=== PATIENT | female | born 1985 | race Caucasian/White ===

== ENCOUNTER → 2020-11-27 | Outpatient (CLI) | payer OTHER, BC ==
[2020-11-27 23:01] LABS: Basophils # (A) 0.03 X 10*3/uL (0.00-0.10); Basophils % (A) 0.5 %; Eosinophils # (A) 0.08 X 10*3/uL (0.04-0.35); Eosinophils % (A) 1.3 %; HCT 35.9 % (37.2-46.3); HGB 11.3 g/dL (12.0-15.0); Lymphocytes % (A) 43.8 %; MCH 30.2 pg (27.0-32.0); MCHC 31.5 g/dL (32.0-37.0); Mean Platelet Volume 10.9 fL (9.5-12.2); Monocytes # (A) 0.29 X 10*3/uL (0.20-1.00); Monocytes % (A) 4.9 %; Neutrophils # (A) 2.93 X 10*3/uL (1.80-7.70); Neutrophils % (A) 49.5 %; Platelet Count 250 X 10*3/uL (140-440); RBC 3.74 X 10*6/uL (4.10-5.20); RDW 12.9 % (11.5-14.5); WBC 5.93 X 10*3/uL (4.50-10.00)
[2020-11-28 06:42] LABS: African American GFR (CKD) 96.7 (60.0-200.0); Anion Gap 12.3 mmol/L (4.00-12.00); BUN/Creat Ratio 11.11 Ratio (12.00-20.00); Calcium 9.8 mg/dL (8.7-10.3); Carbon Dioxide 24.7 mmol/L (21.6-31.8); Non-African American GFR(CKD) 83.4 (60.0-200.0); Potassium 4.1 mmol/L (3.5-5.5)
== END | disposition home or self-care (01) ==
LOC: LABWHC1 14:03
PROVIDERS: ATTEND Obstetrics & Gynecology
DX: Z01.812 Encounter for preprocedural laboratory examination (principal)
CPT/HCPCS: 36415; 80048; 85025

== ENCOUNTER 2020-12-05 05:48 | Day surgery (SDC) | payer OTHER, BC ==
[2020-12-02 08:47] VITALS: BMI 31.6
--- NOTE | 2020-12-04 10:32 | P.HPOB ---
History of Present Illness H&P Date: 12/04/20 Chief Complaint: Family history of ovarian cancer Chary is a 34-year-old female who has a strong family history of ovarian cancer and is at increased risk. She is [place] seen oncology who is recommending this procedure. She is scheduled for a robotic-assisted laparoscopic hysterectomy with bilateral salpingo-oophorectomy possible MIRIAM and possible BSO. She has completed her family planning and is therefore moving forward with this procedure. Risks/benefits/alternatives were reviewed with patient in detail and did include but were not limited to bleeding and infection, damage to bladder or bowel, vascular injuries, nerve injuries, ureteral injuries possible need for other surgery. Past Medical History Past Medical History: Eye Disorder, Hyperlipidemia Additional Past Medical History / Comment(s): lattice degeneration of retina-sarbjit History of Any Multi-Drug Resistant Organisms: None Reported Additional Past Surgical History / Comment(s): oral procedures Past Anesthesia/Blood Transfusion Reactions: No Reported Reaction Smoking Status: Never smoker - Past Family History Mother Family Medical History: Cancer Additional Family Medical History / Comment(s): ovarian Medications and Allergies Home Medications Medication Instructions Recorded Confirmed Type Rosuvastatin Calcium [Crestor] 10 mg PO HS 12/02/20 12/02/20 History Allergies Allergy/AdvReac Type Severity Reaction Status Date / Time Penicillins Allergy Unknown Verified 12/02/20 08:39 Childhood Exam Osteopathic Statement: *. No significant issues noted on an osteopathic structural exam other than those noted in the History and Physical/Consult. - OBG Physical Exam Breast: both: normal (no masses) Abdomen: bowel sounds normal, no diffuse tenderness, no bruit present, no guarding noted, no hepatomegaly, no splenomegaly, no mass Vulva: both: normal Vagina: normal moisture, no discharge Cervix: no lesion, no discharge Uterus: normal size, normal contour Adnexa: both: normal Anus/Rectum: normal perianal skin, no rectal mass, no hemorrhoids, heme negative
[~2020-12-05 05:48] MED LIST: DEXAMETHASONE SOD PHOSPHATE 4 MG/ML 1 ML VIAL IV ONE; HYDROmorphone 0.5 MG/0.5 ML SYRINGE IVP PRN; LACTATED RINGERS 1,000 ML IV SCH; LIDOCAINE 1% (10MG/ML) FOR IV START INTRADERMA PRN; MIDAZOLAM 2 MG/2 ML VIAL IV PRN; ONDANSETRON 4 MG/2 ML VIAL IVP ONE
[2020-12-05] MEDS ORDERED: fentaNYL (PF) 50 MCG/ML 2 ML AMP ONE (07:24)
[2020-12-05] MEDS ORDERED: HYDROmorphone (PF) 1 MG/ML ONE (07:24)
[2020-12-05] MEDS ORDERED: SUCCINYLCHOLINE CHLORIDE 100 MG/5 ML SYR IV ONE (07:24)
[2020-12-05] MEDS ORDERED: ROCURONIUM 10 MG/ML (5 ML VIAL) IV ONE (07:24)
[2020-12-05] MEDS ORDERED: KETOROLAC 15 MG/ML 1 ML VIAL ONE (07:24)
[2020-12-05] MEDS ORDERED: NEOSTIGMINE 1 MG/ML 10 ML VIAL ONE (07:24)
[2020-12-05] MEDS ORDERED: GLYCOPYRROLATE 0.2 MG/ML 2 ML VIAL ONE (07:24)
[2020-12-05] MEDS ORDERED: MIDAZOLAM 2 MG/2 ML VIAL ONE (07:24)
[2020-12-05] MEDS ORDERED: LIDOCAINE 1% INJ 10MG/ML (20 ML MDV) ONE (07:24)
[2020-12-05] MEDS ORDERED: PROPOFOL 10 MG/ML 20 ML VIAL IV ONE (07:24)
[2020-12-05] MEDS ORDERED: BUPIVACAINE (PF) 0.25% 30 ML VIAL SQ ONE ×2 (08:14)
[2020-12-05] MEDS ORDERED: LACTATED RINGERS 1,000 ML IV ONE (08:25)
[2020-12-05] MEDS ORDERED: ONDANSETRON 4 MG/2 ML VIAL IVP PRN (08:46)
[2020-12-05] MEDS ORDERED: SIMETHICONE 80 MG CHEWABLE PO PRN (08:46)
[2020-12-05] MEDS ORDERED: HYDROcodone/APAP 5-325MG 1 EACH TAB PO PRN (08:47)
--- NOTE | 2020-12-05 08:53 | P.OP ---
Date of Procedure: 12/05/20 Preoperative Diagnosis: Strong family history of ovarian cancer Postoperative Diagnosis: Same Procedure(s) Performed: Robotic-assisted laparoscopic hysterectomy with bilateral salpingo- oophorectomy Anesthesia: ADEBAYO Surgeon: Juan F Hyatt [employer] Supervisor #1: Alicia Byrne Estimated Blood Loss (ml): 25 IV fluids (ml): 700 Urine output (ml): 300 Pathology: other (Uterus, cervix and ovaries and bilateral sloping tube) Condition: stable Disposition: floor Operative Findings: Fibroid uterus Description of Procedure: Patient was taken to the operating suite where general anesthetic was found be adequate. She was prepped and draped in the normal sterile fashion and placed in dorsal lithotomy position. Initially a weighted speculum was inserted in the vagina and into lip of cervix was identified and grasped with a single-tooth tenaculum. Cervix was then dilated and uterus was sounded to 9 cm. Using an 8 Jaqui's manipulator and a 3 cm cup the Jaqui manipulator was inserted with sutures placed at 3 and 9 for assistance in removal. Marie catheter was then placed maximal Ascent was marked and gloves were changed. Attention was then turned to abdominal portion procedure where 3 mL of quarter percent Marcaine was injected periumbilically. Through this injected anesthetic a 5 mm skin incision was made and through this incision, under direct visualization with an optical trocar and sleeve, the camera was inserted. Once peritoneal placement was assured gas was allowed to fully insufflate the abdomen and patient was placed in steep Trendelenburg position. Once this was accomplished 2 lateral ports were placed 10 cm from the umbilicus through 8 mm skin incisions and a fourth port and sleeve was inserted between the left lateral and the medial port through a 1 cm incision. Camera port was exchanged for a robotic port and the robot was brought in and docked. Once fully docked a [place] was placed in the one arm and a scissor and the 2 arm and at this point I broke scrub and went to the console. Observations pelvis were noted,. Fibroid uterus was noted. One proxy 3 cm to 4 center. Ocular fibroid. Uterus was then elevated and tipped in the right side and the left infundibular pelvic ligament was identified cauterized and transected. Moving medially through the mesosalpinx tissues cauterized transected to the Remley which which was also cauterized and transected. Anterior posterior leafs the broad ligament were then developed and vascularity on the left side of the uterus was cauterized. At this point we identified the bladder flap which was undermined with [place] and incised across face uterus. Bladder was bluntly dissected out of the operative field. Attention was turned to the right side of the uterus which was developed in a similar fashion. Once this was completed balloon was blown up in the Jaqui manipulator and an anterior colpotomy was made. Cup was then followed 3 and 60 around the cervix cheating head when necessary to maintain excellent hemostasis. Once uterus was removed from the vagina it was pushed down into the vagina to maintain pneumoperitoneum. Pedicles were verified to have hemostasis. Incidents were then exchanged for a make suture cut and a cardia grasper and using to OB lock suture the vaginal cuff was reapproximated in a running fashion. Once this was completed pelvis was irrigated seeing no bleeding in the pedicles along the cuff line instruments were removed and gas was allowed to expel from the abdomen. 4 deep breaths were provided during this process and Dr. Byrne close incision subcuticular. At this point I also did a cystoscopy and verified good flow from both ureteral jets. All incidents were then removed. Sponge, lap, needle counts were all correct 2. Patient was then taken to the recovery room in stable and satisfactory condition.
[2020-12-05] MEDS: SENNOSIDES-DOCUSATE SODIUM 1 EACH TAB PO SCH ×2 (09:00→19:59)
[2020-12-05 13:32] VITALS: TEMP 98.3
[2020-12-05] MEDS: KETOROLAC 15 MG/ML 1 ML VIAL IVP PRN (14:40)
[2020-12-05 15:52] VITALS: RESP 16
[2020-12-05] MEDS: HYDROcodone/APAP 5-325MG 1 EACH TAB PO PRN (17:54)
[2020-12-06] MEDS: HYDROcodone/APAP 5-325MG 1 EACH TAB PO PRN (07:47)
[2020-12-06] MEDS: SENNOSIDES-DOCUSATE SODIUM 1 EACH TAB PO SCH (07:48)
[2020-12-06 08:00] VITALS: BP 124/65; PULSE 70
--- NOTE | 2020-12-06 09:16 | P.DS ---
Providers Expected date of discharge: 12/06/20 Attending physician: Juan F Hyatt Primary care physician: Mely Akhtar - Discharge Diagnosis(es) (1) History of robot-assisted laparoscopic hysterectomy Current Visit: Yes Status: Acute Hospital Course: Pt presented for [facility] BSO and underwent this procedure without complication. Postopearatively she denies N/V/ F/ C/ CP/ SOB. calf pain. Her pain is controlled and harley reg diet. will be discharged home POD #1 in stable condition to follow up with Dr hyatt in 1 week. Plan - Discharge Summary Discharge Rx Participant: No New Discharge Prescriptions: New HYDROcodone/APAP 5-325MG [[place] 5-325] 2 each PO Q4HR PRN #24 tab PRN Reason: Pain Ibuprofen [Motrin] 600 mg PO Q6HR PRN #30 tab PRN Reason: Mild Pain Or Fever >= 100.5 No Action Rosuvastatin Calcium [Crestor] 10 mg PO HS Discharge Medication List Rosuvastatin Calcium [Crestor] 10 mg PO HS 12/02/20 [History] HYDROcodone/APAP 5-325MG [[place] 5-325] 2 each PO Q4HR PRN #24 tab 12/06/20 [Rx] Ibuprofen [Motrin] 600 mg PO Q6HR PRN #30 tab 12/06/20 [Rx] Follow up Appointment(s)/Referral(s): Juan F Hyatt DO [Doctor of Osteopathic Medicine] - 1 Week Discharge Disposition: HOME SELF-CARE
[2020-12-06] MEDS: KETOROLAC 15 MG/ML 1 ML VIAL IVP PRN (10:00)
== END 2020-12-06 11:15 | disposition home or self-care (01) ==
LOC: OR 05:48 → 4FBP 08:48 → OR 12-06 11:15
PROVIDERS: ATTEND Obstetrics & Gynecology
DX: D25.9 Leiomyoma of uterus, unspecified (principal); N80.0 Endometriosis of uterus; Z80.41 Family history of malignant neoplasm of ovary; Z79.899 Other long term (current) drug therapy; Z88.0 Allergy status to penicillin
CPT/HCPCS: 58571; S2900; 36415; 81025; 86850; 86900; 86901; 88307